=== PATIENT | female | born 1955 ===

== ENCOUNTER 2017-03-22 11:30 | Inpatient (IN) | payer OTHER ==
[~2017-03-22] VITALS: Ht 152.4 cm; Wt 72.6 kg
[2017-03-22] MEDS ORDERED: GABAPENTIN800 MG PO (13:05)
[2017-03-22] MEDS ORDERED: CLONAZEPAM1 MG PO (13:05)
[2017-03-22] MEDS ORDERED: ZOLOFT100 MG PO (13:05)
[2017-03-22] MEDS ORDERED: ZANTAC300 MG PO (13:06)
[2017-03-22] MEDS ORDERED: TRAMADOL HCL50 MG PO (13:06)
[2017-03-22] MEDS ORDERED: PROTONIX40 MG PO (13:06)
[2017-03-28] MEDS ORDERED: GABAPENTIN800 MG PO (10:28)
[2017-03-28] MEDS ORDERED: DOCUSATE SODIU100 MG PO (10:29)
[2017-03-28] MEDS ORDERED: AMOX-CLAV 875-1 EACH PO (10:30)
[2017-03-28] MEDS ORDERED: PERCOCET 5-3251 EACH PO (10:31)
[2017-03-28] MEDS ORDERED: CLONAZEPAM1 MG PO (10:31)
== END 2017-03-28 13:04 | disposition home or self-care (01) | DRG 460 ==
LOC: PED 03-27 04:58 → O/R 03-27 04:58 → SURG 03-27 07:00 → PED 03-27 11:40
PROVIDERS: Orthopaedic Surgery Orthopaedic Surgery of the Spine
PROC: 0SG00AJ Fusion of Lumbar Vertebral Joint with Interbody Fusion Device, Posterior Approach, Anterior Column, Open Approach (ICD-10-PCS; 2017-03-27)
PROC: 0ST20ZZ Resection of Lumbar Vertebral Disc, Open Approach (ICD-10-PCS; 2017-03-27)
PROC: 07DS3ZZ Extraction of Vertebral Bone Marrow, Percutaneous Approach (ICD-10-PCS; 2017-03-27)
PROC: 0SG00A0 Fusion of Lumbar Vertebral Joint with Interbody Fusion Device, Anterior Approach, Anterior Column, Open Approach (ICD-10-PCS; principal; 2017-03-27 07:00)
DX: M47.26 Other spondylosis with radiculopathy, lumbar region (principal); M51.16 Intervertebral disc disorders with radiculopathy, lumbar region